=== PATIENT | male | born 1965 | race Caucasian/White ===

== ENCOUNTER 2018-10-23 10:04 | Day surgery (SDC) | payer BC, OTHER ==
[2018-10-20 08:36] VITALS: BMI 43.2
[~2018-10-23 10:04] MED LIST: LACTATED RINGERS 1,000 ML IV SCH
[2018-10-23 10:30] VITALS: RESP 16; TEMP 97.4
[2018-10-23] MEDS ORDERED: PROPOFOL 10 MG/ML 20 ML VIAL IV ONE (12:06)
[2018-10-23] MEDS ORDERED: LIDOCAINE 1% INJ 10MG/ML (20 ML MDV) ONE (12:06)
--- NOTE | 2018-10-23 12:36 | P.PCN ---
Date of Procedure: 10/23/18 Procedure(s) Performed: Procedure: Total colonoscopy. Preoperative diagnosis: History of polyps. Postoperative diagnosis: 1. Diverticulosis with no evidence of acute diverticulitis or strictures. 2. No polyps or tumors seen on this exam today. Preparation HalfLytely prep. Sedation: Was provided by anesthesia. Brief clinical history: The patient is a 53-year-old male who in July 2014 had an adenomatous polyp removed. This evaluation is part of his surveillance and screening. He has no new abdominal symptoms bleeding or anemia. Procedure: With the patient on his left lateral decubitus position and after informed consent and adequate sedation, the perianal area was inspected and it did not show any fissures or fistulas. There were no masses felt on digital rectal examination. The Olympus CFH 190L video colonoscope was then inserted in the rectum in the usual fashion and advanced to the cecum. There were several diverticular orifices seen scattered in the sigmoid and occasional orifice around the hepatic flexure and on the right side but there was no acute diverticulitis or strictures. No polyps or tumors were seen. I retroflexed the endoscope in the rectum before the endoscope was withdrawn. The patient tolerated the procedure well. Plan: The patient was reassured. Discussed dietary measures. He will follow up with you as planned and I recommended repeat exam in 5 years.
[2018-10-23 12:53] VITALS: BP 131/88; PULSE 72
== END 2018-10-23 13:11 | disposition home or self-care (01) ==
LOC: ORWHC2ENDO 10:04
DX: Z12.11 Encounter for screening for malignant neoplasm of colon (principal); K57.30 Diverticulosis of large intestine without perforation or abscess without bleeding; Z86.010 Personal history of colon polyps; I10 Essential (primary) hypertension; E78.5 Hyperlipidemia, unspecified; G47.33 Obstructive sleep apnea (adult) (pediatric); Z99.89 Dependence on other enabling machines and devices; Z79.82 Long term (current) use of aspirin; Z79.899 Other long term (current) drug therapy; Z88.2 Allergy status to sulfonamides
CPT/HCPCS: J2001; J2704; G0105; 45378

== ENCOUNTER → 2020-07-22 | Outpatient (CLI) | payer BC ==
[2020-07-22 07:50] LABS: HCT 45.3 % (39.0-53.0); HGB 15.1 gm/dL (13.0-17.5); MCH 28.5 pg (25.0-35.0); MCHC 33.4 g/dL (31.0-37.0); MCV 85.4 fL (80.0-100.0); Mean Platelet Volume 7.3; Platelet Count 216 k/uL (150-450); RDW 13.4 % (11.5-15.5); WBC 6.2 k/uL (3.8-10.6)
[2020-07-22 08:12] LABS: African American GFR (CKD) >90 (>60 ml/min/1.73 sqM); Anion Gap 8 mmol/L; Blood Urea Nitrogen 14 mg/dL (9-20); Carbon Dioxide 28 mmol/L (22-30); Chloride 103 mmol/L (98-107); Non-African American GFR(CKD) 84 (>60 ml/min/1.73 sqM); Potassium 4.7 mmol/L (3.5-5.1); Sodium 139 mmol/L (137-145)
== END | disposition home or self-care (01) ==
LOC: LABPAT 06:58
PROVIDERS: ATTEND Internal Medicine Interventional Cardiology
DX: Z01.812 Encounter for preprocedural laboratory examination (principal)
CPT/HCPCS: 36415; 80051; 82565; 84520; 85027

== ENCOUNTER 2020-08-21 08:27 | Day surgery (SDC) | payer BC ==
[2020-08-15 16:02] VITALS: BMI 44.9
[2020-08-21 08:51] VITALS: TEMP 97.3
[2020-08-21] MEDS ORDERED: PROPOFOL 10 MG/ML 20 ML VIAL IV ONE (09:36)
[2020-08-21] MEDS ORDERED: KETAMINE 10 MG/ML 20 ML VIAL ONE (09:36)
[2020-08-21] MEDS ORDERED: MIDAZOLAM 2 MG/2 ML VIAL ONE (09:36)
[2020-08-21] MEDS ORDERED: fentaNYL (PF) 50 MCG/ML 2 ML AMP ONE (09:36)
[2020-08-21] MEDS ORDERED: LIDOCAINE 1% INJ 10MG/ML (20 ML MDV) ONE (09:36)
--- NOTE | 2020-08-21 10:16 | P.PCN ---
Date of Procedure: 08/21/20 Description of Procedure: BRIEF HISTORY: Patient is a 55-year-old male presenting for evaluation of dysphagia and heartburn with esophagogastroduodenoscopy. He reported 1 year progressively worsening symptoms of difficulty swallowing solids such as meats and breads. He takes Tums several times per week. Recently started on omeprazole which she just initiated a few days ago. PROCEDURE PERFORMED: Esophagogastroduodenoscopy with biopsy. PREOPERATIVE DIAGNOSIS: Esophageal dysphagia, heartburn. ESTIMATED BLOOD LOSS: Minimal. IV sedation per anesthesia. PROCEDURE: After informed consent was obtained, the patient was brought into the endoscopy unit. IV sedation was administered by Anesthesia under continuous monitoring. Initially the Olympus GIF-190 video endoscope was inserted into the mouth. Esophagus intubated without any difficulty. It was gradually advanced into the stomach and duodenum and carefully examined. The bulb and the second part of the duodenum appeared normal, with biopsies taken to rule out celiac sprue. The scope at this time was withdrawn to the stomach, adequately insufflated with air, and upon careful examination, mucosa of the antrum, body, cardia and the fundus appeared normal, except for moderate erythema and erosions in the antrum and body suggestive of moderate gastritis with biopsies of antrum and body taken. The scope was then withdrawn into the esophagus. The GE junction was located at 41 cm from the incisors and biopsied . The esophagus appeared normal. There were no erosions or ulcerations seen and the patient tolerated the procedure well. IMPRESSION: 1. Moderate gastritis. 2. Biopsies of the duodenum, antrum body and GE junction.. RECOMMENDATIONS: The findings of this examination were discussed with the patient and his . Okay to resume diet. Okay to resume medications. Await pathology from biopsies. Follow up in the GI clinic as scheduled..
[2020-08-21 10:37] VITALS: BP 134/78; PULSE 76; RESP 16
== END 2020-08-21 10:43 | disposition home or self-care (01) ==
LOC: ORWHC2ENDO 08:27
PROVIDERS: ATTEND Internal Medicine
DX: K29.50 Unspecified chronic gastritis without bleeding (principal); K20.0 Eosinophilic esophagitis; R13.14 Dysphagia, pharyngoesophageal phase; K21.9 Gastro-esophageal reflux disease without esophagitis; I10 Essential (primary) hypertension; G47.33 Obstructive sleep apnea (adult) (pediatric); Z99.89 Dependence on other enabling machines and devices; E66.01 Morbid (severe) obesity due to excess calories; Z68.42 Body mass index [BMI] 45.0-49.9, adult; Z90.89 Acquired absence of other organs; Z98.890 Other specified postprocedural states; Z98.42 Cataract extraction status, left eye; Z96.1 Presence of intraocular lens; Z79.899 Other long term (current) drug therapy; Z79.82 Long term (current) use of aspirin
CPT/HCPCS: 88305; 43239; J2250; J2001; J3010; J2704

== ENCOUNTER → 2021-07-16 | Outpatient (CLI) | payer BC ==
--- NOTE | 2021-07-16 18:45 | CT ---
EXAMINATION TYPE: CT abdomen pelvis w con DATE OF EXAM: 07/16/2021 COMPARISON: None HISTORY: Abd pain, RLQ STAT HOLD AND CALL CT DLP: 2916.9 mGycm Automated exposure control for dose reduction was used. TECHNIQUE: Helical acquisition of images was performed from the lung bases through the pelvis. CONTRAST: Performed with Oral Contrast and with IV Contrast, patient injected with 100ml mL of Isovue 300. FINDINGS: LUNG BASES: No acute findings. LIVER/GB: No significant abnormality is appreciated. PANCREAS: No significant abnormality is seen. SPLEEN: No significant abnormality is seen. ADRENALS: No significant abnormality is seen. KIDNEYS: No significant abnormality is seen. PERITONEAL CAVITY: No pneumoperitoneum or peritoneal fluid. RETROPERITONEAL ADENOPATHY: None visualized REPRODUCTIVE ORGANS: No significant abnormality is seen URINARY BLADDER: No definite urinary bladder findings are seen but there is posterior bladder and bi lateral seminal vesical indistinctness associated with a fine reticular pattern of increased attenuat ion diffusely throughout the posterior perivesical space, surrounding the posterior bladder and semin al vesicles. These mild changes can correlate correlate with a clinical diagnosis of cystitis. There are no abnormal gas or fluid collections. The prostate appears unremarkable. PELVIC ADENOPATHY: None visualized. OSSEOUS STRUCTURES: No significant abnormality is seen. BOWEL: No significant abnormality is seen. The appendix has normal appearance. OTHER: No acute vascular findings. IMPRESSION: MILD PERIVESICAL SPACE NONSPECIFIC INFLAMMATORY CHANGES, WHICH CAN CORRELATE WITH A CLINICAL DIAGNOSI S OF CYSTITIS.
== END | disposition home or self-care (01) ==
LOC: RADCTMAIN 16:21
PROVIDERS: ATTEND Family Medicine
DX: R10.31 Right lower quadrant pain (principal); R93.5 Abnormal findings on diagnostic imaging of other abdominal regions, including retroperitoneum
CPT/HCPCS: 74177; Q9967

== ENCOUNTER → 2021-12-11 | Outpatient (CLI) | payer BC ==
--- NOTE | 2021-12-11 16:29 | US ---
EXAMINATION TYPE: US kidneys/renal and bladder DATE OF EXAM: 12/11/2021 COMPARISON: Abdominal ultrasound 08/26/2021, CT abdomen pelvis 07/16/2021. CLINICAL HISTORY: R93.429 Abn findings on diagnostic imaging. EXAM MEASUREMENTS: Right Kidney: 10.7 x 5.8 x 4.8 cm Left Kidney: 10.9 x 5.2 x 5.7 cm Right Kidney: cyst measuring 1.2 x 1.0 x 1.1cm,No hydronephrosis or masses seen . No shadowing calcif ications. Left Kidney: No hydronephrosis or masses seen . No shadowing calcifications. Bladder: not fully distended The visualized liver is hyperechoic. IMPRESSION: No hydronephrosis or concerning renal masses. Hepatic steatosis.
== END | disposition home or self-care (01) ==
LOC: RADUSWWP 15:51
PROVIDERS: ATTEND Family Medicine
DX: K76.0 Fatty (change of) liver, not elsewhere classified (principal)
CPT/HCPCS: 76770

== ENCOUNTER 2022-01-25 09:59 | Observation (INO) | payer BC ==
[~2022-01-25 09:59] MED LIST changes: -LACTATED RINGERS 1,000 ML IV SCH; +NON FORMULARY DRUG (Semaglutide [Ozempic] 1 MG/0.75 ML Each) SQ SCH
[2022-01-25] MEDS ORDERED: HYDROcodone/APAP 5-325MG 1 EACH TAB PO STA (10:25)
--- NOTE | 2022-01-25 10:30 | ED ---
Lower Extremity Injury HPI <Tavon Apodaca - Last Filed: 01/25/22 13:06> - General Source: patient, RN notes reviewed Mode of arrival: ambulatory Limitations: no limitations - History of Present Illness MD Complaint: ankle injury Injury: Ankle: Left Context: fall <Deann Bauer - Last Filed: 01/25/22 15:25> - General Chief Complaint: Fall Stated Complaint: ankle & leg pain Time Seen by Provider: 01/25/22 10:16 - History of Present Illness Initial Comments: This is a 56-year-old male who presents to the emergency department with left ankle pain. Patient states that he was helping a friend move a ladder earlier, when he subsequently fell. He is not sure if he landed flat on his left foot or if his left foot curled underneath him when he fell, states that it happened so fast. He has been having a difficult time getting around and states that the pain is getting progressively worse. He has not been taking anything for the pain. Denies any fevers, chills, sore throat, cough, dyspnea, chest pain, palpitations, abdominal pain, nausea, vomiting, diarrhea, back pain, or headaches. (Deann Bauer) - Related Data Home Medications Medication Instructions Recorded Confirmed Losartan Potassium [Cozaar] 100 mg PO HS 07/24/14 01/25/22 amLODIPine/ATORVASTATIN 1 tab PO DAILY 08/15/20 01/25/22 [amLODIPine/ATORVASTATIN 10-80 MG] Aspirin 81 mg PO DAILY 01/25/22 01/25/22 Celecoxib [CeleBREX] 200 mg PO BID 01/25/22 01/25/22 Metoprolol Succinate [Toprol XL] 100 mg PO HS 01/25/22 01/25/22 Omeprazole [PriLOSEC] 20 mg PO DAILY 01/25/22 01/25/22 Semaglutide [Ozempic] 1 mg SQ MO 01/25/22 01/25/22 Allergies Allergy/AdvReac Type Severity Reaction Status Date / Time Sulfa (Sulfonamide Allergy Unknown Verified 01/25/22 11:59 Antibiotics) Review of Systems ROS Other: All systems not noted in ROS Statement are negative. <Tavon Apodaca - Last Filed: 01/25/22 13:06> ROS Other: All systems not noted in ROS Statement are negative. <Deann Bauer - Last Filed: 01/25/22 15:25> ROS Statement: Those systems with pertinent positive or pertinent negative responses have been documented in the HPI. Past Medical History Past Medical History: GERD/Reflux, Hyperlipidemia, Hypertension, Sleep Apnea/CPAP/BIPAP Additional Past Medical History / Comment(s): dysphagia, hx diverticulitis, hx ulcer, History of Any Multi-Drug Resistant Organisms: None Reported Past Surgical History: Tonsillectomy Additional Past Surgical History / Comment(s): surgery for twisted testicle, EGD, left cataract with lens implant Past Anesthesia/Blood Transfusion Reactions: No Reported Reaction Past Psychological History: No Psychological Hx Reported Smoking Status: Never smoker Past Alcohol Use History: Occasional Past Drug Use History: None Reported - Past Family History Mother Family Medical History: No Reported History <Deann Bauer - Last Filed: 01/25/22 15:25> General Exam Limitations: no limitations General appearance: alert Head exam: Present: atraumatic, normocephalic, normal inspection Respiratory exam: Present: normal lung sounds bilaterally. Absent: respiratory distress, wheezes, rales, rhonchi, stridor Cardiovascular Exam: Present: regular rate, normal rhythm, normal heart sounds. Absent: systolic murmur, diastolic murmur, rubs, gallop, clicks Extremities exam: Present: other (Swelling, tenderness, and ecchymosis over the left medial malleolus. The foot is externally rotated. 2+ dorsalis pedis and tibialis posterior pulses and capillary refill less than 1 second.) Neurological exam: Present: alert, oriented X3, CN II-XII intact Psychiatric exam: Present: normal affect, normal mood Skin exam: Present: warm, dry, intact, normal color. Absent: rash <Deann Bauer - Last Filed: 01/25/22 15:25> Course Vital Signs 01/25/22 01/25/22 01/25/22 10:14 12:43 12:55 Temperature 98 F Pulse Rate 66 65 66 Respiratory 16 17 16 Rate Blood Pressure 127/70 131/88 130/85 O2 Sat by Pulse 98 98 98 Oximetry 01/25/22 01/25/22 01/25/22 13:00 13:05 13:20 Temperature Pulse Rate 65 66 63 Respiratory 15 16 15 Rate Blood Pressure 110/71 111/66 124/72 O2 Sat by Pulse 98 99 99 Oximetry 01/25/22 01/25/22 13:35 13:50 Temperature Pulse Rate 61 90 Respiratory 16 15 Rate Blood Pressure 124/77 126/79 O2 Sat by Pulse 98 98 Oximetry Procedures - Procedural Sedation Procedural Sedation Start Time: 12:55 Procedural Sedation Stop Time: 13:04 Indications: fracture/dislocation reduction ASA Class: II Mallampati Airway Score: 3 Preparation: residential monitor applied, pulse oximeter, capnometry used, supplemental O2 applied IV Propofol Dose (mgs): 120 Complications: none Patient Tolerated Procedure: well <Tavon Apodaca - Last Filed: 01/25/22 13:06> - Orthopedic Splinting/Casting Injury #1 Side: left Lower Extremity Injury Location: long leg, ankle Lower Extremity Immobilizer: posterior splint, stirrup splint <Deann Bauer - Last Filed: 01/25/22 15:25> Medical Decision Making <Tavon Apodaca - Last Filed: 01/25/22 13:06> - Lab Data Result diagrams: 01/25/22 14:06 01/25/22 14:06 - Radiology Data Radiology results: report reviewed, image reviewed <Deann Bauer - Last Filed: 01/25/22 15:25> - Medical Decision Making PA attestation: I, Dr. Tavon Apodaca, personally saw and examined the patient. I have reviewed and agree with the resident/PA findings, including all diagnostic interpretations and treatment plans as written unless otherwise stated. I was present for the taylor portions of any procedures performed and inclusive time noted for any critical care statement. (Tavon Apodaca) This is a 56-year-old male who presents to the emergency department for left ankle pain. X-ray of the left foot and ankle obtained revealing medial dislocation of the distal tibia with fracture of the medial malleolus. Additionally, there is a comminuted fracture of the distal fibula. Tib-fib x- ray obtained for further evaluation per radiology recommendations. Additionally, because of a high impact injury, x-ray of the knee and lumbar spine were also obtained. Additional x-rays revealed a minimally displaced oblique fracture of the midshaft of the left fibula. I spoke with the on-call orthopedic provider, Dr. Steward, he advised reducing the fracture, putting the patient in a posterior splint, and having him follow-up in the office tomorrow. Procedural sedation was used to reduce the fracture. The fracture was reduced by Dr. Apodaca and the patient was placed in a posterior stirrup splint. However, given that the fracture did not have the best reduction and the low likelihood of the ortho glass being sufficient to hold the reduction in place, patient will be admitted to orthopedics for surgical intervention. Medicine consulted for medical management. (Deann Bauer) - Lab Data Lab Results 01/25/22 01/25/22 Range/Units 14:06 14:06 WBC 10.5 (3.8-10.6) k/uL RBC 5.35 (4.30-5.90) m/uL Hgb 14.8 (13.0-17.5) gm/dL Hct 46.5 (39.0-53.0) % MCV 87.0 (80.0-100.0) fL MCH 27.6 (25.0-35.0) pg MCHC 31.8 (31.0-37.0) g/dL RDW 13.0 (11.5-15.5) % Plt Count 204 (150-450) k/uL MPV 8.0 Neutrophils % 84 % Lymphocytes % 8 % Monocytes % 5 % Eosinophils % 1 % Basophils % 0 % Neutrophils # 8.9 H (1.3-7.7) k/uL Lymphocytes # 0.9 L (1.0-4.8) k/uL Monocytes # 0.5 (0-1.0) k/uL Eosinophils # 0.1 (0-0.7) k/uL Basophils # 0.0 (0-0.2) k/uL Sodium 138 (137-145) mmol/L Potassium 4.7 (3.5-5.1) mmol/L Chloride 107 (98-107) mmol/L Carbon Dioxide 23 (22-30) mmol/L Anion Gap 8 mmol/L BUN 18 (9-20) mg/dL Creatinine 0.77 (0.66-1.25) mg/dL Est GFR (CKD-EPI)AfAm >90 (>60 ml/min/1.73 sqM) Est GFR (CKD-EPI)NonAf >90 (>60 ml/min/1.73 sqM) Glucose 105 H (74-99) mg/dL Calcium 8.5 (8.4-10.2) mg/dL Total Bilirubin 0.8 (0.2-1.3) mg/dL AST 27 (17-59) U/L ALT 33 (4-49) U/L Alkaline Phosphatase 66 (38-126) U/L Total Protein 6.5 (6.3-8.2) g/dL Albumin 4.1 (3.5-5.0) g/dL Disposition <Tavon Apodaca - Last Filed: 01/25/22 13:06> <Deann Bauer - Last Filed: 01/25/22 15:25> Clinical Impression: Fracture of medial malleolus of left tibia, Fracture of distal fibula Disposition: ADMITTED IP TO THIS HOSP Referrals: Avni Luu MD [Primary Care Provider] - 1-2 days
--- NOTE | 2022-01-25 11:17 | XR ---
EXAMINATION TYPE: XR foot complete LT, XR ankle complete LT DATE OF EXAM: 01/25/2022 10:56 AM INDICATION: Patient age:Male; 56 years old; Reason for study: Pain; PHH. COMPARISON: None TECHNIQUE: The left foot was examined in the AP, oblique, and lateral projections. Left ankle was ex amined in AP, oblique, and lateral projections. FINDINGS: Medial dislocation of the distal tibia in relation to the talus with pathologic fracture through the medial malleolus with moderate displacement. Additional comminuted fracture of the distal metadiaphys eal fibula with medial apex angulation. Associated soft tissue edema. Suggested fracture line of the proximal fibula only demonstrated on the lateral view. Posterior calcaneal enthesophyte. Joint spaces of the foot are preserved. IMPRESSION: 1. Medial dislocation of the distal tibia with fracture of the medial malleolus. 2. Comminuted fracture of the distal fibula with possible fracture of the proximal fibula. Consider further evaluation with dedicated tibia/fibular radiograph.
[2022-01-25] MEDS ORDERED: HYDROmorphone 0.5 MG/0.5 ML SYRINGE IM STA (11:20)
--- NOTE | 2022-01-25 11:54 | XR ---
EXAMINATION TYPE: XR tibia fibula LT, XR knee limited LT DATE OF EXAM: 01/25/2022 11:42 AM INDICATION: Patient age:Male; 56 years old; Reason for study: pain from fall; PHH. COMPARISON: Left ankle and foot radiograph same date. TECHNIQUE: The left tibia/fibula was examined in AP and lateral projections. The left knee was exami michale in AP and lateral projections. FINDINGS: Redemonstration of medial dislocation of distal tibia in relation to talus. There is again moderately displaced fracture of the medial malleolus. Redemonstration of comminuted fracture of the distal fibular metadiaphysis with medial apex angulation. Soft tissue swelling of the ankle. Oblique minimally displaced fracture of the midshaft diaphysis of the left fibula. No knee joint disl ocation. Tricompartmental osteophytic changes of the knee with joint space narrowing and marginal ost eophytosis. Small suprapatellar spurring noted. No knee joint effusion. IMPRESSION: 1. Redemonstration of distal tibia medial dislocation with fracture of the medial malleolus. 2. Redemonstration of comminuted fractures of distal fibula with minimally displaced oblique fracture of the midshaft of the left fibula. 3. Mild osteoporotic changes of the knee.
--- NOTE | 2022-01-25 11:56 | XR ---
EXAMINATION TYPE: XR lumbar spine 2 or 3V DATE OF EXAM: 01/25/2022 CLINICAL HISTORY: High impact injury TECHNIQUE: Three views of the lumbar spine are submitted. COMPARISON: CT abdomen pelvis 07/16/2021. FINDINGS: There are 5 lumbar type vertebral bodies identified. No acute fracture or dislocation. Redemonstratio n of mild retrolisthesis of L3 on L4. Vertebral body heights are within normal limits. Mild disc spac e narrowing and sclerosis at L5-S1. The overlying soft tissue appears unremarkable. IMPRESSION: 1. No acute fracture or dislocation is seen in the lumbar spine. 2. Stable mild retrolisthesis of L3 on L4. 3. Mild disc degenerative disease at L5-S1.
[2022-01-25] MEDS ORDERED: PROPOFOL 10 MG/ML 20 ML VIAL IV STA (12:26)
[2022-01-25] MEDS ORDERED: PROPOFOL 10 MG/ML 20 ML VIAL IV ONE (13:05)
[2022-01-25] MEDS ORDERED: NALOXONE 0.4 MG/ML 1 ML VIAL IV PRN (13:52)
[2022-01-25] MEDS ORDERED: ONDANSETRON 4 MG/2 ML VIAL IVP PRN (13:52)
[2022-01-25] MEDS ORDERED: HYDROmorphone 0.5 MG/0.5 ML SYRINGE IVP PRN (13:52)
--- NOTE | 2022-01-25 13:59 | XR ---
EXAMINATION TYPE: XR ankle complete LT, XR tibia fibula LT DATE OF EXAM: 01/25/2022 COMPARISON: Left ankle, foot, tibiofibular radiograph the same day. HISTORY: Post reduction. TECHNIQUE: Frontal, lateral, and oblique views of the left ankle are submitted for evaluation. Fronta l and lateral views of the left tibia/fibula obtained. FINDINGS: Overlying cast material limits valuation the fine osseous detail. Interval reduction of ankle dislocation. Continued displaced medial malleolar fracture. Improved alig nment of the distal comminuted fibular fracture. Soft tissue swelling demonstrated. Posterior calcane al spurring. Redemonstration of minimally displaced fibular mid shaft oblique fracture. Osteoporotic changes of the left knee with joint space narrowing and osteophytosis. IMPRESSION: 1. Interval reduction of ankle dislocation with improved alignment of distal fibular fracture. 2. Redemonstration of the mid fibula and medial malleolus.
[2022-01-25 14:12] LABS: Basophils % (A) 0 %; Eosinophils # (A) 0.1 k/uL (0-0.7); Eosinophils % (A) 1 %; HCT 46.5 % (39.0-53.0); HGB 14.8 gm/dL (13.0-17.5); Lymphocytes # (A) 0.9 k/uL (1.0-4.8); Lymphocytes % (A) 8 %; MCH 27.6 pg (25.0-35.0); MCHC 31.8 g/dL (31.0-37.0); Monocytes # (A) 0.5 k/uL (0-1.0); Monocytes % (A) 5 %; Neutrophils # (A) 8.9 k/uL (1.3-7.7); Neutrophils % (A) 84 %; Platelet Count 204 k/uL (150-450); RBC 5.35 m/uL (4.30-5.90); WBC 10.5 k/uL (3.8-10.6)
[2022-01-25 14:30] LABS: ALT 33 U/L (4-49); AST 27 U/L (17-59); African American GFR (CKD) >90 (>60 ml/min/1.73 sqM); Albumin 4.1 g/dL (3.5-5.0); Alkaline Phosphatase 66 U/L (38-126); Anion Gap 8 mmol/L; Blood Urea Nitrogen 18 mg/dL (9-20); Calcium 8.5 mg/dL (8.4-10.2); Carbon Dioxide 23 mmol/L (22-30); Chloride 107 mmol/L (98-107); Glucose 105 mg/dL (74-99); Non-African American GFR(CKD) >90 (>60 ml/min/1.73 sqM); Potassium 4.7 mmol/L (3.5-5.1); Sodium 138 mmol/L (137-145); Total Bilirubin 0.8 mg/dL (0.2-1.3); Total Protein 6.5 g/dL (6.3-8.2)
[2022-01-25] MEDS: HYDROmorphone 1 MG/ML 1 ML SYRINGE IVP PRN ×2 (16:44→21:29)
--- NOTE | 2022-01-25 17:25 | P.HPOR ---
History of Present Illness H&P Date: 01/25/22 This patient is a 56- year old male with a past medical history of hypertension, hyperlipidemia that presented to [facility] emergency department on 01/25/22 with complaints of left ankle pain following a fall. Patient states he fell off a ladder about 6 feet, while helping a friend put up a deer stand. Patient noticed immediate deformity to the ankle and patient was transported to [facility]. Upon presentation to the emergency department, x-rays were taken and revealed a bimalleolar ankle fracture dislocation. Attempt at reduction was performed in the ED. Patient was placed into a splint and admitted under the care of Dr. Steward. Internal medicine was consulted for medical ma pedro. Patient is examined bedside in the emergency department. He is complaining of isolated left ankle pain, although pain is well controlled at this time. He did not hit his head when he fell. He does not take blood thinners. He denies numbness or tingling of the left lower extremity. No additional complaints or concerns at this time. Past Medical History Past Medical History: GERD/Reflux, Hyperlipidemia, Hypertension, Sleep Apnea/CPAP/BIPAP Additional Past Medical History / Comment(s): dysphagia, hx diverticulitis, hx u lcer, History of Any Multi-Drug Resistant Organisms: None Reported Past Surgical History: Tonsillectomy Additional Past Surgical History / Comment(s): surgery for twisted testicle, EGD, left cataract with lens implant Past Anesthesia/Blood Transfusion Reactions: No Reported Reaction Past Psychological History: No Psychological Hx Reported Smoking Status: Never smoker Past Alcohol Use History: Occasional Past Drug Use History: None Reported - Past Family History Mother Family Medical History: No Reported History Medications and Allergies Home Medications Medication Instructions Recorded Confirmed Type Losartan Potassium [Cozaar] 100 mg PO HS 07/24/14 01/25/22 History amLODIPine/ATORVASTATIN 1 tab PO DAILY 08/15/20 01/25/22 History [amLODIPine/ATORVASTATIN 10-80 MG] Aspirin 81 mg PO DAILY 01/25/22 01/25/22 History Celecoxib [CeleBREX] 200 mg PO BID 01/25/22 01/25/22 History Metoprolol Succinate [Toprol XL] 100 mg PO HS 01/25/22 01/25/22 History Omeprazole [PriLOSEC] 20 mg PO DAILY 01/25/22 01/25/22 History Semaglutide [Ozempic] 1 mg SQ MO 01/25/22 01/25/22 History Allergies Allergy/AdvReac Type Severity Reaction Status Date / Time Sulfa (Sulfonamide Allergy Unknown Verified 01/25/22 11:59 Antibiotics) Physical Examination On examination, patient is sitting up on the gurney in no apparent distress. He is alert and orientated x3. His head appears normocephalic and atraumatic. His breathing appears non-labored. On inspection of his bilateral upper extremities, there are no obvious deformities or signs of trauma. On inspection of his right lower extremity, no obvious deformities or signs of trauma. On inspection of his left lower extremity, there is a short leg splint in place. Visible portion of the toes are warm and well perfused with brisk capillary refill. Patient is able to wiggle toes appropriately. No pain with palpation of the left knee. No pain with PROM of the left hip. Results Left ankle x-ray 01/25/22: Left bimalleolar fracture dislocation, with improved alignment on post-reduction films Left tibia/fibula x-ray 01/25/22: Non-displaced midshaft fibula fracture Left knee x-ray 01/25/22: No acute fractures Lumbar spine x-ray 01/25/22: No acute fractures - Labs Labs: Abnormal Lab Results - Last 24 Hours (Table) 01/25/22 01/25/22 Range/Units 14:06 14:06 Neutrophils # 8.9 H (1.3-7.7) k/uL Lymphocytes # 0.9 L (1.0-4.8) k/uL Glucose 105 H (74-99) mg/dL H & H 01/25/22 Range/Units 14:06 Hgb 14.8 (13.0-17.5) gm/dL Hct 46.5 (39.0-53.0) % Result Diagrams: 01/25/22 14:06 01/25/22 14:06 Assessment and Plan Assessment: Left bimalleolar ankle fracture dislocation Left non-displaced midshaft fibula fracture Plan: - Clinical and imaging findings were discussed with the patient. Patient was discussed with Dr. Steward. Recommend ORIF left ankle tomorrow afternoon, pending medical clearance and consent. - Strict non-weight bearing left lower extremity. Keep current splint in place. Aggressive elevation, ice left ankle for swelling control. - Pain management as needed. - Internal medicine consulted for pre-operative medical clearance. - NPO diet at midnight.
[2022-01-25] MEDS: METOPROLOL SUCCINATE (ER) 100 MG TAB.ER.24H PO SCH (21:27)
[2022-01-25] MEDS: LOSARTAN 50 MG TAB PO SCH (21:27)
[2022-01-25 23:43] LABS: Glucose,Whole Blood 96 mg/dL (70-110)
[2022-01-26] MEDS: HYDROmorphone 1 MG/ML 1 ML SYRINGE IVP PRN ×2 (00:01→04:47)
[2022-01-26] MEDS: PANTOPRAZOLE 40 MG TABLET PO SCH ×2 (07:01→08:25)
[2022-01-26] MEDS: ATORVASTATIN 80 MG TAB PO SCH (08:25)
[2022-01-26] MEDS: amLODIPine 10 MG TAB PO SCH (08:25)
[2022-01-26] MEDS: HYDROcodone/APAP 5-325MG 1 EACH TAB PO PRN ×2 (08:31→20:56)
--- NOTE | 2022-01-26 09:46 | P.CONS ---
History of Present Illness - Reason for Consult Consult date: 01/26/22 - Chief Complaint Preoperative clearance, medical management - History of Present Illness 56-year-old man with a history of hypertension, hyperlipidemia, nonobstructive CAD, GERD, osteoarthritis presented after fall resulted in ankle fracture. Medicine was consulted for preoperative clearance as well as medical management. Patient's only complaint at this time is pain of the ankle. Patient is normally independent, denies any issues with chest pain on exertion, shortness of breath on exertion. He does report that he gets lower extremity edema. He tells me that he had heart catheterization approximately 2 years ago, which showed nonobstructive CAD with 30-40% stenosis in unspecified coronary arteries. Patient does take aspirin and beta andres for this issue. Otherwise, patient denies fevers, chills, nausea, vomiting, palpitations, syncope, presyncope, abdominal pain, constipation, diarrhea, dysuria, dyschezia, numbness/weakness of extremities. On my evaluation, patient is afebrile, 139/67, heart rate 67, 95% on room air. CBC, BMP, LFTs are unremarkable. Ankle x-ray shows medial dislocation of distal tibia with fracture of the medial malleolus, comminuted fracture of the distal fibula possible fracture of the proximal fibula. Repeat ankle x-ray demonstrated a reduced dislocation. Tibial/fibula, knee x-ray redemonstrated this finding. Lumbar x-ray demonstrated stable mild retrolisthesis of L3 on L4, mild disc degenerative disease of L5 to S1. All Systems reviewed and pertinent positives and negatives noted in HPI, all other symptoms are negative Gen: in no apparent distress, resting comfortably in bed Eyes: PERRL, no scleral injection or icterus HENT: normocephalic, atraumatic, good hearing acuity, moist mucous membranes Neck: no tracheal deviation, full range of motion Resp: good air exchange, breathing comfortably with no accessory muscle use, no tactile fremitus CVS: good distal perfusion x 4, no pitting edema GI: soft, NTTP, ND, no hepatosplenomegaly : no suprapubic tenderness, no CVAT, mcarthur catheter not present MSK: no clubbing, no cyanosis, no noted contractures of extremities Skin: no noted rashes, petechiae; temperature of skin is appropriate Neuro: moving all extremities without signs of weakness, CN II-XII intact Psych: cooperative, euthymic mood, insight and judgment intact Labs and imaging reviewed as above Assessment/plan: Preoperative clearance Left malleolar fracture -NSQIP estimates risk of MACE to be very low for this patient for the surgery, okay to proceed to surgery without further testing -Continue patient's metoprolol perioperatively Hypertension Hyperlipidemia Nonobstructive CAD GERD -Home medications reviewed and reconciled Patient is full code DVT prophylaxis per surgery Past Medical History Past Medical History: GERD/Reflux, Hyperlipidemia, Hypertension, Osteoarthritis (OA), Sleep Apnea/CPAP/BIPAP Additional Past Medical History / Comment(s): Gastritis, possible stomach ulcer over 20 yrs ago, dysphagia, diverticular disease, benign colon polyps, LIEN with cpap, arthritis bilateral shoulders/knees. History of Any Multi-Drug Resistant Organisms: None Reported Past Surgical History: Tonsillectomy Additional Past Surgical History / Comment(s): EGDs, colonoscopies, surgery for twisted testicles age 10yrs, L eye cataract removal/lens implants. Past Anesthesia/Blood Transfusion Reactions: No Reported Reaction Smoking Status: Never smoker - Past Family History Mother Family Medical History: No Reported History Additional Family Medical History / Comment(s): Mother was healthy. She is . Father Family Medical History: CVA/TIA Additional Family Medical History / Comment(s): Father us Medications and Allergies Home Medications Medication Instructions Recorded Confirmed Type Losartan Potassium [Cozaar] 100 mg PO HS 07/24/14 01/25/22 History amLODIPine/ATORVASTATIN 1 tab PO DAILY 08/15/20 01/25/22 History [amLODIPine/ATORVASTATIN 10-80 MG] Aspirin 81 mg PO DAILY 01/25/22 01/25/22 History Celecoxib [CeleBREX] 200 mg PO BID 01/25/22 01/25/22 History Metoprolol Succinate [Toprol XL] 100 mg PO HS 01/25/22 01/25/22 History Omeprazole [PriLOSEC] 20 mg PO DAILY 01/25/22 01/25/22 History Semaglutide [Ozempic] 1 mg SQ MO 01/25/22 01/25/22 History Allergies Allergy/AdvReac Type Severity Reaction Status Date / Time Sulfa (Sulfonamide Allergy Unknown Verified 01/25/22 11:59 Antibiotics) Physical Exam Osteopathic Statement: *. No significant issues noted on an osteopathic structural exam other than those noted in the History and Physical/Consult. Vitals: Vital Signs Temp Pulse Pulse Resp BP BP Pulse Ox 01/26/22 08:28 95 01/26/22 08:00 98.2 F 67 18 139/67 95 01/26/22 02:00 98.1 F 66 16 111/71 92 L 01/25/22 21:00 98.6 F 66 16 125/72 96 01/25/22 18:00 65 18 128/81 97 01/25/22 16:53 72 16 128/83 97 01/25/22 15:30 67 15 128/86 97 01/25/22 15:00 66 15 145/89 98 01/25/22 14:30 65 16 134/75 98 01/25/22 13:50 90 15 126/79 98 01/25/22 13:35 61 16 124/77 98 01/25/22 13:20 63 15 124/72 99 01/25/22 13:05 66 16 111/66 99 01/25/22 13:00 65 15 110/71 98 01/25/22 12:55 66 16 130/85 98 01/25/22 12:43 65 17 131/88 98 01/25/22 10:14 98 F 66 16 127/70 98 Intake and Output 01/25/22 01/26/22 01/26/22 22:59 06:59 14:59 Intake Total 200 Output Total 345 Balance 200 -345 Intake: Oral 200 Output: Urine 345 Other: Voiding Method Urinal Urinal # Voids 1 Weight 115.666 kg Results CBC & Chem 7: 01/25/22 14:06 01/25/22 14:06 Labs: Abnormal Lab Results - Last 24 Hours (Table) 01/25/22 01/25/22 Range/Units 14:06 14:06 Neutrophils # 8.9 H (1.3-7.7) k/uL Lymphocytes # 0.9 L (1.0-4.8) k/uL Glucose 105 H (74-99) mg/dL
[2022-01-26] MEDS ORDERED: IV FLUID CONTINUATION 1,000 ML IV ONE (12:13)
[2022-01-26] MEDS ORDERED: DEXAMETHASONE SOD PHOSPHATE 4 MG/ML 1 ML VIAL IVP ONE (12:19)
[2022-01-26] MEDS ORDERED: ONDANSETRON 4 MG/2 ML VIAL IVP ONE (12:19)
[2022-01-26] MEDS ORDERED: MIDAZOLAM 2 MG/2 ML VIAL IVP ONE ×2 (12:22→12:23)
[2022-01-26] MEDS ORDERED: fentaNYL (PF) 50 MCG/ML 2 ML AMP IVP ONE ×2 (12:22→12:23)
--- NOTE | 2022-01-26 12:53 | P.ANPRN ---
Procedure Note - Anesthesia - Nerve Block Performed Left Popliteal Single Time Out Performed: Yes (1222) Date of Procedure: 01/26/22 Procedure Start Time: : Procedure Stop Time: : Location of Patient: PreOp Indication: Acute Post-Operative Pain, Requested by Surgeon Specifically requested for management of pain by DrHolger: Doug Steward Sedation Type: Sedate with meaningful contact maintained Preparation: Sterile Prep, Sterile Dressing Position: Supine Catheter: None Needle Types: Pajunk Needle Gauge: 21 Ultrasound used to visualize needle placement: Yes Ultrasound used to observe medication spread: Yes Injectate: 0.5% Ropivacaine (see comment for volume) (15cc + 15cc nacl pf) Blood Aspirated: No Pain Paresthesia on Injection Noted: No Resistance on Injection: Normal Image Stored and Saved: Yes Events: Uneventful and Well Tolerated
--- NOTE | 2022-01-26 12:54 | P.ANPRN ---
Procedure Note - Anesthesia - Nerve Block Performed Left Adductor Canal Single Time Out Performed: Yes (1222) Date of Procedure: 01/26/22 Procedure Start Time: 12:28 Procedure Stop Time: 12:31 Location of Patient: PreOp Indication: Acute Post-Operative Pain, Requested by Surgeon Specifically requested for management of pain by DrHolger: Doug Steward Sedation Type: Sedate with meaningful contact maintained Preparation: Sterile Prep Position: Supine Catheter: None Needle Types: Pajunk Needle Gauge: 21 Ultrasound used to visualize needle placement: Yes Ultrasound used to observe medication spread: Yes Injectate: 0.5% Ropivacaine (see comment for volume) (15cc + 15cc nacl pf) Blood Aspirated: No Pain Paresthesia on Injection Noted: No Resistance on Injection: Normal Image Stored and Saved: Yes Events: Uneventful and Well Tolerated
[2022-01-26] MEDS ORDERED: SODIUM CHLORIDE 0.9% (PF) 10 ML VIAL ONE (13:09)
[2022-01-26] MEDS ORDERED: PHENYLEPHRINE-0.9% NACL SYG 1,000 MCG/10 ML SYRINGE ONE (13:09)
[2022-01-26] MEDS ORDERED: ROPIVACAINE 5 MG/ML 30 ML VIAL ONE (13:09)
[2022-01-26] MEDS ORDERED: SUCCINYLCHOLINE CHLORIDE 200 MG/10 ML VIAL IV ONE (13:09)
[2022-01-26] MEDS ORDERED: PROPOFOL 10 MG/ML 20 ML VIAL IV ONE (13:09)
[2022-01-26] MEDS ORDERED: SODIUM CHLORIDE 0.9% 1,000 ML BAG ONE (13:09)
[2022-01-26] MEDS ORDERED: MIDAZOLAM 2 MG/2 ML VIAL ONE (13:09)
[2022-01-26] MEDS ORDERED: ceFAZolin 1,000 MG VIAL ONE (13:09)
[2022-01-26] MEDS ORDERED: ACETAMINOPHEN TAB 325 MG TAB PO PRN (19:44)
[2022-01-26] MEDS ORDERED: BENZOCAINE/MENTHOL LOZENG 1 EACH LOZENGE MUCOUS MEM PRN (19:44)
[2022-01-26] MEDS: LOSARTAN 50 MG TAB PO SCH (20:57)
[2022-01-26] MEDS: METOPROLOL SUCCINATE (ER) 100 MG TAB.ER.24H PO SCH (21:13)
[2022-01-26 21:29] LABS: Basophils % (A) 0 %; Eosinophils # (A) 0.1 k/uL (0-0.7); Eosinophils % (A) 1 %; HCT 49.4 % (39.0-53.0); HGB 15.7 gm/dL (13.0-17.5); Hypochromasia Slight; Lymphocytes # (A) 0.6 k/uL (1.0-4.8); Lymphocytes % (A) 6 %; MCH 28.5 pg (25.0-35.0); MCHC 31.8 g/dL (31.0-37.0); MCV 89.6 fL (80.0-100.0); Mean Platelet Volume 8.2; Monocytes # (A) 0.2 k/uL (0-1.0); Monocytes % (A) 2 %; Neutrophils # (A) 9.2 k/uL (1.3-7.7); Neutrophils % (A) 91 %; Platelet Count 228 k/uL (150-450); RBC 5.52 m/uL (4.30-5.90); RDW 13.5 % (11.5-15.5); WBC 10.1 k/uL (3.8-10.6)
[2022-01-26 21:47] LABS: African American GFR (CKD) >90 (>60 ml/min/1.73 sqM); Anion Gap 10 mmol/L; Blood Urea Nitrogen 16 mg/dL (9-20); Calcium 9.2 mg/dL (8.4-10.2); Carbon Dioxide 25 mmol/L (22-30); Chloride 104 mmol/L (98-107); Glucose 116 mg/dL (74-99); Magnesium 2.1 mg/dL (1.6-2.3); Non-African American GFR(CKD) >90 (>60 ml/min/1.73 sqM); Potassium 4.7 mmol/L (3.5-5.1); Sodium 139 mmol/L (137-145)
[2022-01-27] MEDS: HEPARIN SODIUM,PORCINE/PF 5,000 UNIT/0.5 ML SYRINGE SQ SCH ×2 (00:15→09:46)
[2022-01-27] MEDS: HYDROcodone/APAP 5-325MG 1 EACH TAB PO PRN ×2 (06:49→10:48)
[2022-01-27] MEDS: PANTOPRAZOLE 40 MG TABLET PO SCH (06:49)
[2022-01-27] MEDS ORDERED: ASPIRIN 81 MG PO SCH (09:00)
--- NOTE | 2022-01-27 10:17 | OP ---
OPERATIVE REPORT PREOPERATIVE DIAGNOSIS: Trimalleolar fracture dislocation of the left ankle. POSTOPERATIVE DIAGNOSIS: Trimalleolar fracture dislocation of the left ankle. PROCEDURE: Open reduction and internal fixation of the left distal fibula and medial malleolus. EDITOR MANAGING DIRECTOR: SANDRO Ni ESTIMATED BLOOD LOSS: 25 mL. ANESTHESIA: General. COMPLICATIONS: None. SPECIMENS REMOVED: None. OPERATIVE INDICATIONS: Mr. Rivera is a 56-year-old gentleman who sustained an injury after fall from a height and had a fracture dislocation, trimalleolar, of his left ankle. The ankle was provisionally reduced by the emergency room, splinted and the patient was admitted for surgical intervention. After reviewing the x-rays and discussing the surgical and nonsurgical treatment options with him at length, I have recommended we proceed with open reduction and internal fixation of his left ankle. Informed consent was obtained. COMPONENTS USED: Kitty small fragment distal fibular plate with locking and nonlocking screws. Tom and Nephew 4.0 cannulated screws x2. DESCRIPTION OF PROCEDURE: Patient was seen in the preoperative area. The consent was reviewed and the operative site was marked with a skin marker. The patient was then brought to the operating room, given 2 g of Ancef intravenously. General anesthetic was administered by the Anesthesia Department. A tourniquet was placed on the left upper thigh, and the left lower extremity was prepped and draped in the usual sterile fashion. A universal time- out was then performed to confirm the patient's name, surgical site, allergies, and consent. The left lower extremity was exsanguinated and tourniquet inflated to 250 mmHg. The procedure began by addressing the distal fibula. A lateral incision was made over the left ankle, centered over the distal fibula with skin and subcutaneous tissue sharply incised. The tissues were then dissected down to the distal fibula, and the fracture site was readily visualized. It was found to be significantly comminuted with multiple devitalized fragments of bone. These pieces of bone were removed and saved for later bone grafting. Next, the fracture was reduced and held provisionally reduced with bone reducing clamps. Fluoroscopic x-rays confirmed reduction of the fibula. A 1/3 semitubular plate was then prebent and placed on the lateral aspect of the distal fibula and held provisionally with screws proximally and distally. Fluoroscopic x-rays confirmed placement of the plate and reduction of distal fibula and ankle mortise. Attention was then directed to the medial malleolus. A curvilinear anterior medial incision was made over the medial malleolus with the skin and subcutaneous tissue sharply incised. Care was taken to avoid injuring the neurovascular structures. The medial malleolar fracture was readily visualized and found to be significantly displaced. The fracture site was then cleaned of any loose bone as well as periosteum. The medial malleolar fragment was then manually reduced and held with a towel clip and 2 K-wires were then placed in a retrograde fashion through the tip of the medial malleolus in order to hold the fracture in place. Fluoroscopic x-rays confirmed position of the K-wires as well as reduction of the fracture and roman catholic of ankle mortise. Next, 2 cannulated screws were placed over the K-wires and the K-wires were then removed. Attention was then redirected to the fibula. Locking screws were then placed in the fibular plate both proximally and distally to the fracture site. After all the screws then placed, fluoroscopic x-rays confirmed reduction of the fracture and placement of the hardware. Next, the bone that had been removed prior was then placed in the fracture site as an autologous bone graft. The tourniquet was then released and hemostasis was obtained. The areas were then irrigated with antibiotic solution. The wounds were then closed with 3-0 Vicryl followed by светлана for the skin. A well-padded and molded posterior splint was then placed, and the patient was then transferred to recovery room in stable condition. Undercoat Sprayer, SANDRO Gaxiola, was required due to the complexity of surgery and the need for a skilled surgical technology instructor. MMODL / IJN: [id number] /
[2022-01-27 10:30] VITALS: BP 131/66; PULSE 73; RESP 21; TEMP 97.9
[2022-01-27] MEDS: ATORVASTATIN 80 MG TAB PO SCH (10:31)
[2022-01-27] MEDS: amLODIPine 10 MG TAB PO SCH (10:31)
--- NOTE | 2022-01-27 11:23 | P.DS ---
Providers Date of admission: 01/25/22 13:52 Expected date of discharge: 01/27/22 Attending physician: Rosy Loco DO Consults: 01/25/22 13:52 Consult Physician Urgent Consulting Provider: Rosy Loco Consult Reason/Comments: Medical management/preop clearance Do you want consulting provider notified?: Yes 01/26/22 08:58 Consult Physician Routine Consulting Provider: Doug Steward Reason/Comments: fx ankle Do you want consulting provider notified?: Already Contacted Primary care physician: Avni Luu - Discharge Diagnosis(es) (1) Fracture of distal fibula Current Visit: Yes Status: Acute (2) Fracture of medial malleolus of left tibia Current Visit: Yes Status: Acute Hospital Course: This patient is a 56- year old male with a past medical history of hypertension, hyperlipidemia that presented to [facility] emergency department on 01/25/22 with complaints of left ankle pain following a fall. Patient states he fell off a ladder about 6 feet, while helping a friend put up a deer stand. Ravin raymond noticed immediate deformity to the ankle and patient was transported to [facility]. Upon presentation to the emergency department, x-rays were taken and revealed a bimalleolar ankle fracture dislocation. Attempt at reduction was performed in the ED. Patient was placed into a splint and admitted under the care of Dr. Steward. Internal medicine was consulted for medical management. Patient is examined bedside in the emergency department. He is complaining of isolated left ankle pain, although pain is well controlled at this time. He did not hit his head when he fell. He does not take blood thinners. He denies numbness or tingling of the left lower extremity. No additional complaints or concerns at this time. The patient was taken to surgery for open reduction internal fixation of the left ankle. The procedure is performed without complication or sequelae. The patient is doing well postoperatively. Vital signs are stable. The patient has no new complaints or concerns of discharge. Past Medical History Patient Condition at Discharge: Good Plan - Discharge Summary Discharge Rx Participant: No New Discharge Prescriptions: New Sennosides-Docusate Sodium [Senokot-S] 1 tab PO BID #60 tablet Aspirin 325 mg PO BID #60 tab HYDROcodone/APAP 7.5-325MG [Finley 7.5-325] 1 - 2 tab PO Q6HR PRN #32 tab PRN Reason: Pain Acetaminophen Tab [Tylenol] 650 mg PO Q6H PRN tab PRN Reason: Pain Continue Losartan Potassium [Cozaar] 100 mg PO HS amLODIPine/ATORVASTATIN [amLODIPine/ATORVASTATIN 10-80 MG] 1 tab PO DAILY Semaglutide [Ozempic] 1 mg SQ MO Omeprazole [PriLOSEC] 20 mg PO DAILY Metoprolol Succinate [Toprol XL] 100 mg PO HS Discontinued Aspirin 81 mg PO DAILY Celecoxib [CeleBREX] 200 mg PO BID Discharge Medication List Losartan Potassium [Cozaar] 100 mg PO HS 07/24/14 [History] amLODIPine/ATORVASTATIN [amLODIPine/ATORVASTATIN 10-80 MG] 1 tab PO DAILY 08/15/20 [History] Metoprolol Succinate [Toprol XL] 100 mg PO HS 01/25/22 [History] Omeprazole [PriLOSEC] 20 mg PO DAILY 01/25/22 [History] Semaglutide [Ozempic] 1 mg SQ MO 01/25/22 [History] Acetaminophen Tab [Tylenol] 650 mg PO Q6H PRN tab 01/27/22 [Rx] Aspirin 325 mg PO BID #60 tab 01/27/22 [Rx] HYDROcodone/APAP 7.5-325MG [Finley 7.5-325] 1 - 2 tab PO Q6HR PRN #32 tab 01/27/22 [Rx] Sennosides-Docusate Sodium [Senokot-S] 1 tab PO BID #60 tablet 01/27/22 [Rx] Follow up Appointment(s)/Referral(s): Avni Luu MD [Primary Care Provider] - 1-2 days (patient prefers to make appointment independently ) Doug Steward DO [Doctor of Osteopathic Medicine] - 2 Weeks (patient states he has a previous appointment schedule with Dr. Steward on 02/08/22) Activity/Diet/Wound Care/Special Instructions: NWB LLE w crutches. Keep splint intact until follow up. Call office if any problems or questions. [phone]. Discharge Disposition: HOME SELF-CARE
--- NOTE | 2022-01-27 11:46 | P.PN ---
Subjective Progress Note Date: 01/27/22 Pt doing well, pain is controlled. Medically stable for discharge Gen: in no apparent distress, resting comfortably in bed Eyes: PERRL, no scleral injection or icterus HENT: normocephalic, atraumatic, good hearing acuity, moist mucous membranes Neck: no tracheal deviation, full range of motion Resp: good air exchange, breathing comfortably with no accessory muscle use, no tactile fremitus CVS: good distal perfusion x 4, no pitting edema GI: soft, NTTP, ND, no hepatosplenomegaly : no suprapubic tenderness, no CVAT, mcarthur catheter not present MSK: no clubbing, no cyanosis, no noted contractures of extremities Skin: no noted rashes, petechiae; temperature of skin is appropriate Neuro: moving all extremities without signs of weakness, CN II-XII intact Psych: cooperative, euthymic mood, insight and judgment intact Labs and imaging reviewed as above Assessment/plan: Preoperative clearance Left malleolar fracture -NSQIP estimates risk of MACE to be very low for this patient for the surgery, okay to proceed to surgery without further testing -Continue patient's metoprolol perioperatively Hypertension Hyperlipidemia Nonobstructive CAD GERD -Home medications reviewed and reconciled Patient is full code DVT prophylaxis per surgery Objective - Vital Signs Vital signs: Vital Signs Temp 97.9 F 01/27/22 09:00 Pulse 73 01/27/22 09:00 Resp 21 01/27/22 09:00 BP 131/66 01/27/22 09:00 Pulse Ox 94 L 01/27/22 09:00 FiO2 Intake & Output 01/26/22 01/27/22 01/27/22 18:59 06:59 18:59 Output Total 300 Balance -300 Weight 115.6 kg Output: Urine 300 Other: Voiding Method Urinal Urinal # Voids 1 - Labs CBC & Chem 7: 01/26/22 16:30 01/26/22 16:30 Labs: Abnormal Lab Results - Last 24 Hours (Table) 01/26/22 01/26/22 Range/Units 16:30 16:30 Neutrophils # 9.2 H (1.3-7.7) k/uL Lymphocytes # 0.6 L (1.0-4.8) k/uL Glucose 116 H (74-99) mg/dL
--- NOTE | 2022-01-28 13:02 | XR ---
EXAMINATION TYPE: XR ankle limited LT, FL guidance operating room DATE OF EXAM: 01/27/2022 COMPARISON: NONE HISTORY: Open reduction internal fixation Fluoroscopy support supplied to the referring clinician. See dictated report from surgery, 2 intraop erative C-arm images, 26 seconds fluoroscopy time supplied to the referring clinician
== END 2022-01-27 12:15 | disposition home or self-care (01) ==
LOC: EC 09:59 → 4SSUR 13:52 → 2SICU 22:50
PROVIDERS: ADMIT Internal Medicine; ATTEND Internal Medicine
DX: S82.852A Displaced trimalleolar fracture of left lower leg, initial encounter for closed fracture (principal); G89.18 Other acute postprocedural pain; I10 Essential (primary) hypertension; K21.9 Gastro-esophageal reflux disease without esophagitis; E78.5 Hyperlipidemia, unspecified; M51.37 Other intervertebral disc degeneration, lumbosacral region; M77.32 Calcaneal spur, left foot; M43.16 Spondylolisthesis, lumbar region; I25.10 Atherosclerotic heart disease of native coronary artery without angina pectoris; G47.33 Obstructive sleep apnea (adult) (pediatric); M19.012 Primary osteoarthritis, left shoulder; M19.011 Primary osteoarthritis, right shoulder; M17.0 Bilateral primary osteoarthritis of knee; Z79.82 Long term (current) use of aspirin; Z79.1 Long term (current) use of non-steroidal anti-inflammatories (NSAID); Z88.2 Allergy status to sulfonamides; Z82.3 Family history of stroke; W11.XXXA Fall on and from ladder, initial encounter
CPT/HCPCS: 96376 ×2; 96372 ×2; 96374; 99285; 36415; 97161; 64447; 64445; 76942; 80053; 80048; 83735; 85025 ×2; 72100; 73590; 73560; 73600; 73610; 73630; 27810; 27822; G0378 ×3; C1713; J2250; J0330; J1100; J2405; J0690; J3010; J1170 ×3; J2795; J2370; J2704 ×2; J1644

== ENCOUNTER → 2022-06-10 | Outpatient (CLI) | payer BC ==
--- NOTE | 2022-06-11 07:00 | US ---
EXAMINATION TYPE: US abdomen limited DATE OF EXAM: 06/10/2022 COMPARISON: CT abdomen pelvis 07/16/2021, abdominal ultrasound 08/26/2021. 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 TECHNIQUE: Multiple grayscale and color Doppler images of the umbilical region were obtained. FINDINGS/IMPRESSION: At patient's palpable 8cm from umbilicus is a 4.8 x 1.9 x 5.4cm echogenic mass, probable lipoma. No i nternal color flow identified.
== END | disposition home or self-care (01) ==
LOC: RADUSWWP 15:14
PROVIDERS: ATTEND Family Medicine
DX: D17.79 Benign lipomatous neoplasm of other sites (principal)
CPT/HCPCS: 76705

== ENCOUNTER → 2022-06-14 | Outpatient (CLI) | payer BC ==
--- NOTE | 2022-06-14 08:43 | US ---
EXAMINATION TYPE: US abdomen complete DATE OF EXAM: 06/14/2022 COMPARISON: CT abdomen and pelvis July 16, 2021 CLINICAL HISTORY: R10.9 ABD PAIN. Right sided abdomen pain x 1 month TECHNIQUE: Multiple sonographic images of the abdomen are obtained. FINDINGS: EXAM MEASUREMENTS: Liver Length: 13.7 cm Gallbladder Wall: 0.21 cm CBD: 0.31 cm Spleen: 9.9 cm Right Kidney: 11.0 x 5.6 x 5.9 cm Left Kidney: 11.2 6.5 x 6.8 cm Pancreas: Tail obscured by overlying bowel gas Liver: Heterogeneous, increased attenuation Gallbladder: wnl Evidence for sonographic Boles's sign: No CBD: wnl Spleen: wnl Right Kidney: Hypoechoic exophytic circumscribed lesion upper lateral pole 1.4 x 1.6 x 1.3cm Left Kidney: wnl Upper IVC: wnl Abd Aorta: wnl Visualized liver heterogeneously hyperechoic. No new ascites. The intrahepatic portion of the IVC and visualized abdominal aorta are within normal limits. There is no evidence of cholelithiasis. Commo n bile duct is unremarkable. The visualized portions of the pancreas are homogenous. The spleen is unremarkable. Kidneys are free of hydronephrosis. Right kidney is partially exophytic 1.4 cm lesion upper pole level favoring simple cyst. IMPRESSION: No new or acute findings are evident. Fatty infiltrated hepatocellular disease redemonstr ated. Two Small lesions upper pole right kidney seen on recent CT, one identified on ultrasound are n oted.
== END | disposition home or self-care (01) ==
LOC: RADUSWWP 06:38
PROVIDERS: ATTEND Family Medicine
DX: K76.0 Fatty (change of) liver, not elsewhere classified (principal); N28.9 Disorder of kidney and ureter, unspecified
CPT/HCPCS: 76700

== ENCOUNTER → 2024-09-26 | Outpatient (CLI) | payer BC ==
--- NOTE | 2024-09-27 10:43 | MR ---
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 COMPARISON: Cervical spine radiograph 08/02/2024. TECHNIQUE: Multi planar, multi sequence imaging was performed of the cervical spine. No Gadolinium wa s given. FINDINGS: Alignment: The cervical vertebral bodies have preserved heights. Degenerative grade 1 anterolisthesis of C2 on C3, C5 on C6, and C6 on C7. Bones: Bone signal is within normal limits. Anterior osteophyte at C4-C5. No abnormal STIR signal. Cord: The spinal cord is unremarkable with regards to their signal intensity and morphology. Discs: Multilevel disc desiccation is present. C2-C3: No significant disc pathology. The spinal canal is patent. No neural foraminal stenosis. C3-C4: Broad-based disc bulge with mild effacement of the anterior thecal sac and abutment of the slim tral spinal cord without cord signal change. Minimal central canal stenosis. The left neural foramen is patent. Moderate right neural foraminal stenosis. C4-C5: Eccentric left broad-based disc bulge resulting in mild effacement of the anterior thecal sac and abutment of the anterior spinal cord. No cord signal change or significant mass effect. Uncoverte bral joint hypertrophy. Mild central canal stenosis. The right neural foramen is patent. Moderate to severe left neural foraminal stenosis. C5-C6: Broad-based disc bulge with mild effacement of the anterior thecal sac in close approximation of the ventral spinal cord. Mild central canal stenosis. The right neural foramen is patent. Mild lef t neural foraminal stenosis. C6-C7: Eccentric left broad-based disc bulge with minimal effacement of the anterior thecal sac. No s ignificant central canal stenosis. The neural foramina are patent bilaterally. C7-T1: No significant disc pathology. The spinal canal is patent. No neural foraminal stenosis. Other: Left maxillary T2 hyperintense 1.9 cm mucous retention cyst. IMPRESSION: 1. No evidence for disc herniation or significant spinal canal stenosis. 2. Multilevel disc degeneration of the cervical spine as described above. [facility], , 09/27/2024 10:40 AM [facility], , 09/27/2024 10:41 AM
== END | disposition home or self-care (01) ==
LOC: RADMRIMAIN 19:00
PROVIDERS: ATTEND Orthopaedic Surgery
DX: M47.812 Spondylosis without myelopathy or radiculopathy, cervical region (principal); M43.12 Spondylolisthesis, cervical region; M50.31 Other cervical disc degeneration, high cervical region; M99.71 Connective tissue and disc stenosis of intervertebral foramina of cervical region
CPT/HCPCS: 72141